=== PATIENT | female | born 1995 | race Two or more races ===

== ENCOUNTER 2024-01-27 20:58 | Emergency (ER) | payer MEDICAID, OTHER ==
[~2024-01-27] VITALS: Ht 165.1 cm; Wt 57.5 kg
--- NOTE | 2024-01-27 21:12 | ED.PDOC ---
SOB-HPI HPI Comments HPI: Poor Historian. 28-year-old female presents with upper respiratory symptoms for One-week history. Patient has some productive cough. Her [id number] child is also sick with similar symptoms. Over the last week she tried multiple medications alieve, NyQuil, DayQuil, ibuprofen. Past Medcial History: Tobacco abuse, PTSD, depression, anxiety Past Surgical History: REVIEW OF SYSTEMS: CONSTITUTIONAL: Denies acute: fever, diaphoresis, chills, HEAD: Denies acute: headache, photophobia Eyes: Denies acute: Double vision, vision loss, eye pain, eye discharge. EARS: Denies acute: tinnitus, hearing loss, ear discharge, THROAT: Denies acute: sore throat, swelling, difficulty swallowing , pain with swallowing, change in voice. NECK: Denies acute: neck pain, neck swelling, stiff neck. HEART: Denies acute : chest pain, palpitations, LUNGS: Denies acute: wheezing, hemoptysis ABDOMEN: Denies acute: abdominal pain, Nausea, Vomiting, diarrhea, melena , hematemesis, hematochezia SKIN: Denies acute: rash, redness, lesions, itchiness. EXTREMITIES: Denies acute: calf pain, numbness, tingling, weakness, denies pain in extremity. Denies acute: Low back pain. Neuro: Denies acute: focal neurological deficit, motor or sensory focal neurological deficit, tremors, seizure like activity, confusion, dizziness, change in mental status, loss of bowel or bladder function, cauda equina like symptoms. : Denies acute: dysuria, hematuria, flank pain, increase in urinary frequency. PSYCH: Denies acute: hallucination, suicidal ideation, homicidal ideation. FEMALE: Denies acute: abnormal vaginal bleeding, foul odor, unusual discharge. PHYSICAL EXAM: General: no acute distress, awake and alert. Head: normocephalic, atraumatic. Neck: supple, trachea is midline, no swelling. Throat: Normal phonation. No erythema, no swelling, no exudates, no obstruction, no drooling, no tripoding, Eyes:, no erythema, no purulent discharge, no proptosis, no icterus. Heart: regular tachycardic, no significant murmur appreciated. Lungs: no apparent respiratory distress, Able to speak in full sentences. No wheezing, no rhonchi, no crackles. No stridors Clear to auscultation bilaterally. Abdomen: non tender to palpation, non distended, soft, no guarding, no rebound, + bowel sounds. Neuro: Awake, Alert, oriented to name, self, situation, follows commands GCS=15. Speech is normal. Skin: no petechia, no purpura, no cyanosis, non-pale, not jaundice. Lower extremities: --no - Pitting edema no deformity, no focal swelling, no calf TTP. Makes eye contact. moves all four extremities. Face: no apparent facial droop. Ambulating in the ED independently. Ears: Left tympanic membrane is erythematous inflamed consistent with otitis media. Evaluation of the mastoids reveal no tenderness to palpation or swelling or erythema. Time Seen by MD: 21:06 Reviewed notes: Nurses Notes, Medications, Allergies Information Source: Patient Was a procedure done? Was a procedure done?: No Differential Dx Differential Diagnosis: Sinusitis, Allergic Rhinitis, Otitis Media, Peritonsillar Abscess, Peritonsillar Cellulitis, Pharyngitis, URI, Other (DDx include ACS, unstable angina, anxiety, PE, pneumothroax, neoplasm, cardiac ischemia, COPD, asthma, CHF, pleural effusion, tobacco abuse, pneumonia, hypoxia, hypercapnia, anemia., infection/sepsis., pulmonary edema. Asthma, Cardiac tamponade, infection.) X-Ray, Labs, Meds, VS Vital Signs Date Time Temp Pulse Resp B/P (MAP) Pulse Ox O2 Delivery O2 Flow Rate FiO2 01/28/24 00:32 Room Air* 0 21 01/28/24 00:28 98.5 92 16 119/70 (86) 98 98.5 01/27/24 22:54 98.3 110 20 148/92 (110) 97 98.3 01/27/24 21:05 98.2 117 18 131/74 (93) 97 Lab Test 01/27/24 21:32 01/27/24 21:27 01/27/24 21:26 Range/Units White Blood Count 17.6 H 4.4-10.8 10^3/uL Red Blood Count 4.27 4.0-5.20 10^6/uL Hemoglobin 13.9 12.2-16.2 g/dL Hematocrit 40.3 36.0-46.0 % Mean Corpuscular Volume 94.2 80.0-100.0 fL Mean Corpuscular Hemoglobin 32.5 H 28.0-32.0 pg Mean Corpuscular Hemoglobin Concent 34.5 32.0-36.0 g/dL Red Cell Distribution Width 13.7 11.8-14.3 % Platelet Count 273 140-450 10^3/uL Mean Platelet Volume 8.6 6.9-10.8 fL Neutrophils (%) (Auto) 72.5 37.0-80.0 % Lymphocytes (%) (Auto) 18.8 10.0-50.0 % Monocytes (%) (Auto) 7.3 0.0-12.0 % Eosinophils (%) (Auto) 0.7 0.0-7.0 % Basophils (%) (Auto) 0.7 0.0-2.0 % Neutrophils # (Auto) 12.8 H 1.6-8.6 10 ^3/uL Lymphocytes # (Auto) 3.3 0.4-5.4 10 ^3/uL Monocytes # (Auto) 1.3 0-1.3 10 ^3/uL Eosinophils # (Auto) 0.1 0-0.8 10 ^3/uL Basophils # (Auto) 0.1 0-0.2 10 ^3/uL Nucleated Red Blood Cells 0.1 % Sodium Level 141 136-145 mmol/L Potassium Level 4.1 3.5-5.1 mmol/L Chloride Level 109 H 98-107 mmol/L Carbon Dioxide Level 24 20-31 mmol/L Anion Gap 8 5-15 Blood Urea Nitrogen 6 L 9-23 mg/dL Creatinine 0.65 0.550-1.02 mg/dL Glomerular Filtration Rate Calc 124 >90 mL/min BUN/Creatinine Ratio 9.2 L 10.0-20.0 Serum Glucose 104 74-106 mg/dL Calcium Level 10.1 8.7-10.4 mg/dL Troponin I High Sensitivity < 3 L </=34 ng/L Monoscreen Negative Influenza Type A Antigen Negative Negative Influenza Type B Antigen Negative Negative Group A Streptococcus Rapid Negative SARS-CoV-2 Antigen (Rapid) Negative NEGATIVE Microbiology Date/Time Source Procedure Growth Status 01/27/24 21:27 Throat Nose/Throat Culture - Final Complete [facility] [address] [facility] [address] Ph: [phone] DIAGNOSTIC IMAGING Diagnostic Imaging Report : [id number] Signed PATIENT: MIGUEL ROSALES ACCT: [id number] UNIT: [id number] : 1995 LOC: ER ROOM / BED: / AGE / SEX: 28 / F ADM STATUS: REG ER SERVICE 00 ORDERING PHYSICIAN: EBONY SEGURA DO PROCEDURE(s): IAC W - INTERNAL AUDITORY CANAL WITH REASON: L ear pain, ORDER NUMBER(s): [id number], ACCESSION NUMBER(s): [id number] INDICATION: L ear pain, EXAM DATE: 01/27/2024 11:58 PM COMPARISON: None TECHNIQUE: CT of the IAC without intravenous contrast. RADIATION DOSE: CTDIvol: 58.8 mGy, DLP: 697.98 mGy*cm FINDINGS: On the right side, the external auditory canal appears intact. The middle ear cavity is clear. The ossicular chain appears intact. No inner ear abnormality is identified. The tegmen appears intact. The semicircular canals appear covered by bone. The mastoid air cells are well aerated and pneumatized. On the left side, the external auditory canal appears intact. Asymmetric thickening of the tympanic membrane. The ossicular chain appears intact. No inner ear abnormality is identified. The tegmen appears intact. The semicircular canals appear covered by bone. The mastoid air cells are well aerated and pneumatized. The limited visualized soft tissues are otherwise unremarkable. IMPRESSION: Questionable thickening of the left tympanic membrane. Recommend further evaluation with physical exam and correlation for otitis media. ATED BY: TAMARA ALBERTS DO DICTATED DATE/TIME: 01/28/24148 SIGNED BY: TAMARA ALBERTS DO SIGNED DATE/TIME: 01/28/24148 CC: [address] [address] Ph: [phone] DIAGNOSTIC IMAGING Diagnostic Imaging Report : [id number] Signed PATIENT: MIGUEL ROSALES ACCT: [id number] UNIT: [id number] : 1995 LOC: ER ROOM / BED: / AGE / SEX: 28 / F ADM STATUS: REG ER SERVICE [id number] ORDERING PHYSICIAN: EBONY SEGURA DO PROCEDURE(s): IAC W - INTERNAL AUDITORY CANAL WITH REASON: L ear pain, ORDER NUMBER(s): [id number], ACCESSION NUMBER(s): [id number] INDICATION: L ear pain, EXAM DATE: 01/27/2024 11:58 PM COMPARISON: None TECHNIQUE: CT of the IAC without intravenous contrast. RADIATION DOSE: CTDIvol: 58.8 mGy, DLP: 697.98 mGy*cm FINDINGS: On the right side, the external auditory canal appears intact. The middle ear cavity is clear. The ossicular chain appears intact. No inner ear abnormality is identified. The tegmen appears intact. The semicircular canals appear covered by bone. The mastoid air cells are well aerated and pneumatized. On the left side, the external auditory canal appears intact. Asymmetric thickening of the tympanic membrane. The ossicular chain appears intact. No inner ear abnormality is identified. The tegmen appears intact. The semicircular canals appear covered by bone. The mastoid air cells are well aerated and pneumatized. The limited visualized soft tissues are otherwise unremarkable. IMPRESSION: Questionable thickening of the left tympanic membrane. Recommend further evaluation with physical exam and correlation for otitis media. ATED BY: TAMARA ALBERTS DO DICTATED DATE/TIME: 01/28/24148 SIGNED BY: TAMARA ALBERTS DO SIGNED DATE/TIME: 01/28/24148 CC: [place] [address] Ph: [phone] DIAGNOSTIC IMAGING Diagnostic Imaging Report : [id number] Signed PATIENT: MIGUEL ROSALES ACCT: [id number] UNIT: [id number] : 1995 LOC: ER ROOM / BED: / AGE / SEX: 28 / F ADM STATUS: REG ER SERVICE 211 ORDERING PHYSICIAN: EBONY SEGURA DO PROCEDURE(s): CXR1 - CHEST XRAY 1 VIEW REASON: cough ORDER NUMBER(s): [id number], ACCESSION NUMBER(s): [id number] CHEST RADIOGRAPH Indication:cough Technique: Single frontal view of the chest was obtained Comparison: None FINDINGS: Lines and Tubes: None Lungs: No focal consolidation. Pleura: No effusion. No pneumothorax. Cardiomediastinal contours: Unremarkable Bones: No acute osseous abnormality. IMPRESSION: No acute cardiopulmonary disease. ATED BY: TAMARA ALBERTS DO DICTATED DATE/TIME: 01/27/242148 SIGNED BY: TAMARA ALBERTS DO SIGNED DATE/TIME: 01/27/242148 CC: Time of 1ST Reevaluation: 01:00 Reevaluation 1ST: Improved Patient Education/Counseling: Diagnosis, Treatment Family Education/Counseling: No Family Present Comments Patient presented with the above HPI.--URI----workup was initiated. patient was found with the above mentioned diagnosis. Patient was given: Toradol Rocephin, hydrocodone Patient ED course and VS have been stabilized. Patient has been reassessed in the ED and remained in a stable condition. Pertinent incidental findings were discussed with the patient and/or family. Patient/family voices understanding and is agreeable with plan. Patient has been observed in the ED adequate length of time to insure improvement/stability. patient was discharged home in a stable condition. All the reports of any imaging studies that were ordered by myself were reviewed by myself. Departure 1 Departure Time of Disposition: 01:54 Impression: Primary Impression: Otitis media Additional Impression: URI (upper respiratory infection) Disposition: 01 HOME / SELF CARE / HOMELESS Condition: Stable Additional Instructions: [place] [address] Ph: [phone] DIAGNOSTIC IMAGING Diagnostic Imaging Report : [id number] Signed PATIENT: MIGUEL ROSALES ACCT: [id number] UNIT: [id number] : 1995 LOC: ER ROOM / BED: / AGE / SEX: 28 / F ADM STATUS: REG ER SERVICE 10 ORDERING PHYSICIAN: EBONY SEGURA DO PROCEDURE(s): CXR1 - CHEST XRAY 1 VIEW REASON: cough ORDER NUMBER(s): [id number], ACCESSION NUMBER(s): [id number] CHEST RADIOGRAPH Indication:cough Technique: Single frontal view of the chest was obtained Comparison: None FINDINGS: Lines and Tubes: None Lungs: No focal consolidation. Pleura: No effusion. No pneumothorax. Cardiomediastinal contours: Unremarkable Bones: No acute osseous abnormality. IMPRESSION: No acute cardiopulmonary disease. ATED BY: TAMARA ALBERTS DO DICTATED DATE/TIME: 01/27/242148 SIGNED BY: TAMARA ALBERTS DO SIGNED DATE/TIME: 01/27/242148 CC: [place] [address] Ph: [phone] DIAGNOSTIC IMAGING Diagnostic Imaging Report : [id number] Signed PATIENT: MIGUEL ROSALES ACCT: [id number] UNIT: [id number] : 1995 LOC: ER ROOM / BED: / AGE / SEX: 28 / F ADM STATUS: REG ER SERVICE 00 ORDERING PHYSICIAN: EBONY SEGURA DO PROCEDURE(s): IAC W - INTERNAL AUDITORY CANAL WITH REASON: L ear pain, ORDER NUMBER(s): [id number], ACCESSION NUMBER(s): [id number] INDICATION: L ear pain, EXAM DATE: 01/27/2024 11:58 PM COMPARISON: None TECHNIQUE: CT of the IAC without intravenous contrast. RADIATION DOSE: CTDIvol: 58.8 mGy, DLP: 697.98 mGy*cm FINDINGS: On the right side, the external auditory canal appears intact. The middle ear cavity is clear. The ossicular chain appears intact. No inner ear abnormality is identified. The tegmen appears intact. The semicircular canals appear covered by bone. The mastoid air cells are well aerated and pneumatized. On the left side, the external auditory canal appears intact. Asymmetric thickening of the tympanic membrane. The ossicular chain appears intact. No inner ear abnormality is identified. The tegmen appears intact. The semicircular canals appear covered by bone. The mastoid air cells are well aerated and pneumatized. The limited visualized soft tissues are otherwise unremarkable. IMPRESSION: Questionable thickening of the left tympanic membrane. Recommend further evaluation with physical exam and correlation for otitis media. ATED BY: TAMARA ALBERTS DO DICTATED DATE/TIME: 01/28/24148 SIGNED BY: TAMARA ALBERTS DO SIGNED DATE/TIME: 01/28/24148 CC: e-Prescriptions Amoxicillin & Pot Clavulanate (AUGMENTIN TABLET) 875 Mg Tb 875 MG PO BID for 7 Days, #14 TAB Prov: EBONY SEGURA DO 01/28/24 Discharged With: Self Critical Care Note Critical Care Time?: No EBONY SEGURA DO Jan 27, 2024 21:12
[2024-01-27 21:40] LABS: Basophils # (auto) 0.1 10 ^3/uL (0-0.2); Basophils % (auto) 0.7 % (0.0-2.0); Eosinophils # (auto) 0.1 10 ^3/uL (0-0.8); Eosinophils % (auto) 0.7 % (0.0-7.0); Hematocrit 40.3 % (36.0-46.0); Hemoglobin 13.9 g/dL (12.2-16.2); Lymphocytes # (auto) 3.3 10 ^3/uL (0.4-5.4); Lymphocytes % (auto) 18.8 % (10.0-50.0); Mean Corpuscular Hemoglobin 32.5 pg (28.0-32.0); Mean Corpuscular Hgb Conc. 34.5 g/dL (32.0-36.0); Mean Corpuscular Volume 94.2 fL (80.0-100.0); Monocytes # (auto) 1.3 10 ^3/uL (0-1.3); Monocytes % (auto) 7.3 % (0.0-12.0); Neutrophils # (auto) 12.8 10 ^3/uL (1.6-8.6); Neutrophils % (auto) 72.5 % (37.0-80.0); Nucleated Red Blood Cells % 0.1 %; Platelet Count (auto) 273 10^3/uL (140-450); Red Blood Cells 4.27 10^6/uL (4.0-5.20); Red Cell Distribution Width 13.7 % (11.8-14.3); White Blood Cell 17.6 10^3/uL (4.4-10.8)
--- NOTE | 2024-01-27 21:51 | DVH ---
CHEST RADIOGRAPH Indication:cough Technique: Single frontal view of the chest was obtained Comparison: None FINDINGS: Lines and Tubes: None Lungs: No focal consolidation. Pleura: No effusion. No pneumothorax. Cardiomediastinal contours: Unremarkable Bones: No acute osseous abnormality. IMPRESSION: No acute cardiopulmonary disease.
[2024-01-27 21:53] LABS: Rapid Strep A Screen-Throat Negative
[2024-01-27 21:57] LABS: Chloride 109 mmol/L (98-107); Potassium 4.1 mmol/L (3.5-5.1); Sodium 141 mmol/L (136-145)
[2024-01-27 21:58] LABS: Rapid Influenza A Negative (Negative); Rapid Influenza B Negative (Negative)
[2024-01-27 21:58] LABS: COVID19 ANTIGEN SOFIA FIA NEGATIVE (NEGATIVE)
[2024-01-27 21:58] LABS: Anion Gap 8 (5-15); Calcium 10.1 mg/dL (8.7-10.4); Carbon Dioxide 24 mmol/L (20-31)
[2024-01-27 22:03] LABS: BUN/Creatinine Ratio 9.2 (10.0-20.0); Blood Urea Nitrogen 6 mg/dL (9-23); Glucose 104 mg/dL (74-106)
[2024-01-27] MEDS: KETOROLAC TROMETH 30 MG/ML 1ML VIAL IV ONE (23:37)
[2024-01-27] MEDS: HYDROcodone-ACET 5/325MG TAB PO ONE (23:37)
[2024-01-28] MEDS: IOHEXOL 300 MG/ML 100ML BOTTLE IJ ONE (00:23)
[2024-01-28 00:28] VITALS: BP 119/70; PULSE 92; RESP 16; TEMP 98.5; O2SAT 98
[2024-01-28] MEDS: cefTRIAXone 1GM/50ML D5W 50 ML IV ONE (00:32)
--- NOTE | 2024-01-28 01:52 | DVH ---
INDICATION: L ear pain, EXAM DATE: 01/27/2024 11:58 PM COMPARISON: None TECHNIQUE: CT of the IAC without intravenous contrast. RADIATION DOSE: CTDIvol: 58.8 mGy, DLP: 697.98 mGy*cm FINDINGS: On the right side, the external auditory canal appears intact. The middle ear cavity is clear. The ossicular chain appears intact. No inner ear abnormality is identified. The tegmen appears intact . The semicircular canals appear covered by bone. The mastoid air cells are well aerated and pneuma tized. On the left side, the external auditory canal appears intact. Asymmetric thickening of the tympanic membrane. The ossicular chain appears intact. No inner ear abnormality is identified. The tegmen appears intact. The semicircular canals appear covered by bone. The mastoid air cells are well aerat ed and pneumatized. The limited visualized soft tissues are otherwise unremarkable. IMPRESSION: Questionable thickening of the left tympanic membrane. Recommend further evaluation with physical exa m and correlation for otitis media.
[2024-01-28] MEDS ORDERED: AUG875T PO (01:57)
== END 2024-01-28 02:14 | disposition home or self-care (01) ==
LOC: ER 20:58
DX: H66.92 Otitis media, unspecified, left ear (principal); J06.9 Acute upper respiratory infection, unspecified; Z20.822 Contact with and (suspected) exposure to COVID-19
CPT/HCPCS: 36415; 70481; 71045; 80048; 84484; 85025; 86308; 87070; 87426; 87804; 87880; 96365; 96375; 99285; J0696; J1885; Q9967